=== PATIENT | female | born 1995 ===

== ENCOUNTER 2017-09-23 22:13 | Emergency (ER) | payer OTHER ==
[~2017-09-23] VITALS: Ht 162.6 cm; Wt 52.2 kg
[~2017-09-23 22:13] MED LIST: BUS5 PO; MULT-298 PO; [UNRECOGNIZED DRUG - CODE] PO
[2017-09-23 22:15] VITALS: BP 112/74
[2017-09-24 00:21] LABS: APPEARANCE,URINE CLEAR (CLEAR); BILIRUBIN,URINE NEGATIVE (NEGATIVE); BLOOD, URINE NEGATIVE (NEGATIVE); COLOR,URINE YELLOW (YELLOW); LEUKOCYTE ESTERASE ,URINE NEGATIVE (NEGATIVE); NITRITE, URINE NEGATIVE (NEGATIVE); PH,URINE 7.5 (5.0-9.0); UGLUCOSE NEGATIVE (NEGATIVE)
[2017-09-24 00:31] LABS: ANION GAP 11.7 (8-16); CARBON DIOXIDE 30.9 mmol/L (21-32); CREATININE 0.5 mg/dL (0.6-1.3); POTASSIUM 3.6 mmol/L (3.5-5.1)
[2017-09-24 00:33] LABS: RBC,URINE 0-5 (RARE) /HPF (0-5); WBC,URINE 0-5 (RARE) /HPF (0-5)
[2017-09-24 00:40] LABS: HEMATOCRIT 39.5 % (36-48); MEAN CORPUSCULAR HEMOGLOBIN 31 pg (27-31); MEAN CORPUSCULAR HGB CONC 33 g/dL (33-37); MEAN CORPUSCULAR VOLUME 93 fL (80-94); PLATELET COUNT (AUTO) 305 K/uL (140-450); RED BLOOD CELL COUNT(AUTO) 4.23 MIL/uL (4.20-5.40); RED CELL DISTRIBUTION WIDTH 11.8 % (11.6-13.7); WHITE BLOOD COUNT (AUTO) 7.2 K/uL (4.8-10.8)
[2017-09-24 00:46] LABS: ALBUMIN 4.3 g/dL (3.4-5.0); THYROID STIMULATING HORMONE 1.44 uIU/mL (0.34-3.74); TOTAL BILIRUBIN 0.3 mg/dL (0.0-1.0)
[2017-09-24 00:59] LABS: LYMPHOCYTES % (MANUAL) 52 % (20-46); MONOCYTES % (MANUAL) 7 % (5-12)
[2017-09-24 01:09] VITALS: BP 112/71
== END 2017-09-24 01:09 | disposition home or self-care (01) ==
LOC: MED 22:13
DX: R07.9 Chest pain, unspecified (principal); R53.1 Weakness; R25.2 Cramp and spasm
CPT/HCPCS: 36415; 71010; 80053; 81001; 81025; 84443; 84484; 85025; 93005; 99285; Q0092